=== PATIENT | female | born 1985 | race African-American/Black ===

== ENCOUNTER 2017-07-09 09:22 | Emergency (ER) | payer MEDICAID, OTHER ==
[~2017-07-09] VITALS: Ht 167.6 cm; Wt 108.0 kg
[~2017-07-09 09:22] MED LIST: ANXIETY MEDS; [UNRECOGNIZED DRUG - OTHER]
[2017-07-09 09:26] VITALS: Ht 167.6 cm; Wt 108.0 kg
[2017-07-09] MEDS ORDERED: CEPH-443 PO (09:49)
[2017-07-09] MEDS ORDERED: SULF1TAB31 PO (09:49)
--- NOTE | 2017-07-09 09:55 | ERD ---
ER Documentation Chief Complaint Chief Complaint Pt presents with R axillary abcess X 1 week. HPI 31-year-old female comes in with a axillary abscess on the right side for approximately a week. She has had this on and off for almost a year, previously she was on ointment but no oral antibiotics. Patient's pain is achy , localized, mild to moderate. She took Tylenol for the pain prior to arrival. ROS All systems reviewed and are negative except as per history of present illness. Medications Home Meds Active Scripts Cephalexin* (Keflex*) 500 Mg Capsule, 500 MG PO QID for 7 Days, CAP Prov:MADY DIAZ PA-C 07/09/17 Sulfamethoxazole/Trimethoprim* (Bactrim Ds* Tablet) 1 Each Tablet, 1 TAB PO BID , #14 TAB Prov:MADY DIAZ PA-C 07/09/17 Reported Medications [anxiety meds] No Conflict Check 05/24/13 [high blood pressure meds] No Conflict Check 05/24/13 Allergies Allergies: Coded Allergies: No Known Allergy (Unverified , 05/24/13) PMhx/Soc History of Surgery: No Anesthesia Reaction: No Hx Neurological Disorder: Yes (CONVULSIONS A YEAR AGO ALCOHOL RELATED) Hx Respiratory Disorders: Yes (ASTHMA) Hx Cardiac Disorders: No Hx Psychiatric Problems: No Hx Miscellaneous Medical Probl: Yes (HTN, anxiety, ALCOHOLISM.) Hx Alcohol Use: Yes (VODKA 2 SHOTS TODAY) Hx Substance Use: Yes (MARIJUANA 1 BALL TODAY) Hx Tobacco Use: No Physical Exam Vitals Vital Signs Date Time Temp Pulse Resp B/P Pulse Ox O2 Delivery O2 Flow Rate FiO2 07/09/17 09:26 98.0 96 16 152/87 97 Physical Exam General: Well-developed, well-nourished. The patient appears in no acute distress. HEENT: Head is normocephalic, atraumatic. No scleral icterus. Neck: Supple. Nontender. Lungs: Clear to auscultation. Normal air movement. Heart: Regular rate and rhythm. S1 and S2 are normal. No murmurs, gallops, or rubs. Abdomen: Nondistended. Extremities: No clubbing or cyanosis. Moving extremities x 4. No weakness. Neurologic: Alert and oriented 3. No focal deficits. Normal speech and gait. Skin: 1.5 cm area of fluctuance in the right axilla, there is fluctuance, erythema, no lymphatic streaking. Results 24 hrs Current Medications Medications (Trade) Dose Ordered Sig/Gonsalo Route PRN Reason Start Time Stop Time Status Last Admin Dose Admin Lidocaine (Xylocaine 1% (Mdv) 20 ml) 20 ml ONCE ONCE SC 07/09/17 10:00 07/09/17 10:01 Procedures/MDM Abscess Incision and Drainage with irrigation by me: Patient was verbally consented Location: Right axilla \ Anesthesia: Local 1% Lidocaine Technique: Irrigated. Disrupted loculations w/ instrumentation Packing: None Complications: Neurovascularly intact post procedure 48 hour wound check. Scar minimization instructions given. Patient's skin symptoms have stabilized while they have been evaluated in the department and are appropriate for outpatient care and work up. Exam and w/u not consistent w/ sepsis, deep space infection, or foreign body. Departure Diagnosis: Primary Impression: Encounter for incision and drainage procedure Additional Impression: Abscess Condition: Good Patient Instructions: Abscess, Incision And Drainage MADY DIAZ PA-C Jul 09, 2017 09:55
[2017-07-09] MEDS ORDERED: LIDOCAINE 1% (MDV) 20 ML INJ SC ONE (10:00)
== END 2017-07-09 10:12 | disposition home or self-care (01) ==
LOC: FTE 09:22
DX: L02.411 Cutaneous abscess of right axilla (principal); I10 Essential (primary) hypertension; J45.901 Unspecified asthma with (acute) exacerbation; R40.2142 Coma scale, eyes open, spontaneous, at arrival to emergency department; R40.2252 Coma scale, best verbal response, oriented, at arrival to emergency department; R40.2362 Coma scale, best motor response, obeys commands, at arrival to emergency department
CPT/HCPCS: 10060; Z7502; Z7610